=== PATIENT | female | born 1990 | race Two or more races ===

== ENCOUNTER 2025-02-06 20:52 | Observation (INO) | payer MEDICAID, SELFPAY ==
[2025-02-06] VITALS (38 sets, daily range): BP systolic 113–131; BP diastolic 66–78; PULSE 72–87; RESP 18; TEMP 36.9–37.1; O2SAT 92–100; BMI 31.2
--- NOTE | 2025-02-06 21:15 | XR_ITS ---
Examination: Complete OB ultrasound greater than 14 weeks Date and time of exam: February 06, 2025 2147 hours INDICATIONS: Vaginal bleeding today Findings: Viable intrauterine single fetus with single amniotic sac presentation breech Cardiac motion 162 BPM Placenta posterior low lying no reduction grade 2 Umbilical cord insertion 3 vessel C Amniotic fluid index adequate spine posterior Cervix 4.2 cm Vertebral view obscured by bowel gas Left ovary. Composite estimated gestational age based on BPD, head circumference, abdominal circumference, femur length is 21 day Estimated weight 754 g. Survey of intracranial anatomy, spinal anatomy, abdominal anatomy, four-chamber heart performed with no abnormalities identified. Impression: Viable intrauterine gestation in breech presentation No placental abruption.
--- NOTE | 2025-02-06 21:16 | XR_ITS ---
Examination: Transvaginal ultrasound of the pelvis, limited Technique: Transvaginal sonographic images pelvis performed using colbert scale imaging Exam date and time: February 06, 2025 2144 hours INDICATIONS: Vaginal bleeding today, unknown cervical length FINDINGS: Cervix 5.0 cm IMPRESSION: Cervix 5.0 cm.
[2025-02-06 22:04] LABS: Basophils # (Auto) 0.0 Thou/mm3 (0.0-0.2); Basophils % (Auto) 0 % (0-2.5); Eosinophils # (Auto) 0.2 Thou/mm3 (0.0-0.5); Eosinophils % (Auto) 2 % (0-10); Hematocrit 38.0 % (36.0-46.0); Hemoglobin 12.8 g/dL (12.0-16.0); Immature Granulocytes Auto 0.04 Thou/mm3 (0.00-0.00); Lymphocytes # (Auto) 1.9 Thou/mm3 (1.0-4.8); Lymphocytes % (Auto) 20 % (10-50); Mean Corpuscular HGB Conc 33.7 g/dl (31.0-37.0); Mean Corpuscular Hemoglobin 30.1 pg (25.0-35.0); Mean Corpuscular Volume 89 fL (80-100); Monocytes # (Auto) 0.7 Thou/mm3 (0.0-0.8); Monocytes % (Auto) 7 % (0-12); Neutrophils # (Auto) 6.8 Thou/mm3 (1.8-7.7); Neutrophils % (Auto) 71 % (37-80); Nucleated Red Blood Cell # 0.00 Thou/mm3 (0.00-0.00); Nucleated Red Blood Cell % 0 /100 WBC (0); Platelet Count 225 Thou/mm3 (140-440); RDW Standard Deviation 43.7 fL (36.4-46.3); Red Blood Count 4.25 Miln/mm3 (4.00-5.20); White Blood Count 9.6 Thou/mm3 (3.6-11.0)
[2025-02-06 22:04] LABS: Collection Type, Urine Voided
[2025-02-06 22:07] LABS: Bilirubin,Urine Negative (Negative); Blood,Urine 3+ (Negative); Clarity,Urine Clear (Clear/Hazy); Color,Urine Lt-Yellow (Lt Yel-Yel); Glucose, Urine 2+ (Negative); Ketones,Urine Negative (Negative); Leukocyte Esterase,Urine Positive (Negative); Nitrite,Urine Negative (Negative); PH,Urine 6.5 (5.0-7.0); Protein,Urine Negative (Neg - Trace); RBC,Urine 50 /hpf (0-3); Specific Gravity,Urine 1.013 (1.001-1.035); Squamous Epithelial Cell,Urine 6 /hpf (0-5); Urobilinogen,Urine Negative mg/dL (0.0-1.0); WBC,Urine 5 /hpf (0-5)
[2025-02-07] VITALS: BP 113/63; PULSE 75
[2025-02-07 00:01] VITALS: PULSE 84; O2SAT 97
== END 2025-02-07 00:15 | disposition home or self-care (01) ==
PROVIDERS: Admitting Provider Specialist; Visit Provider Specialist
DX: O46.92 Antepartum hemorrhage, unspecified, second trimester (principal); Z3A.25 25 weeks gestation of pregnancy; O32.1XX0 Maternal care for breech presentation, not applicable or unspecified
CPT/HCPCS: 36415; 59025; 59899; 76805; 76830; 81001; 85025; 86850; 86900; 86901; J2790

== ENCOUNTER 2025-05-05 06:45 | Observation (INO) | payer MEDICAID, SELFPAY ==
[2025-05-05 06:57] VITALS: BP 119/73; PULSE 71; RESP 17; RESP 98; TEMP 36.8; BMI 31.1
[2025-05-05 07:02] VITALS: BP 119/73; PULSE 71
== END 2025-05-05 09:15 | disposition home or self-care (01) ==
PROVIDERS: Admitting Provider Specialist; Visit Provider Specialist
DX: O26.893 Other specified pregnancy related conditions, third trimester (principal); Z3A.37 37 weeks gestation of pregnancy; M54.9 Dorsalgia, unspecified
CPT/HCPCS: 59025; 59899

== ENCOUNTER 2025-05-10 04:19 | Inpatient (IN) | payer MEDICAID, SELFPAY ==
[2025-05-10] VITALS (23 sets, daily range): BP systolic 102–132; BP diastolic 55–75; PULSE 60–96; RESP 16–98; TEMP 36.5–37; O2SAT 89–98; BMI 32.5
[2025-05-10] MEDS: Ampicillin Inj 2,000 MG in SODIUM CHLORIDE 0.9% (POP) 100 ML 200 MG IV (05:09)
[2025-05-10] MEDS: RINGERS LACTATED 1000 ML 1,000 ML 100 ML IV (05:09)
[2025-05-10 05:33] LABS: Basophils # (Auto) 0.1 Thou/mm3 (0.0-0.2); Basophils % (Auto) 1 % (0-2.5); Eosinophils # (Auto) 0.3 Thou/mm3 (0.0-0.5); Eosinophils % (Auto) 2 % (0-10); Hematocrit 42.2 % (36.0-46.0); Hemoglobin 14.4 g/dL (12.0-16.0); Immature Granulocytes Auto 0.04 Thou/mm3 (0.00-0.00); Lymphocytes # (Auto) 2.4 Thou/mm3 (1.0-4.8); Lymphocytes % (Auto) 23 % (10-50); Mean Corpuscular HGB Conc 34.1 g/dl (31.0-37.0); Mean Corpuscular Hemoglobin 30.4 pg (25.0-35.0); Mean Corpuscular Volume 89 fL (80-100); Monocytes # (Auto) 0.9 Thou/mm3 (0.0-0.8); Monocytes % (Auto) 8 % (0-12); Neutrophils # (Auto) 7.0 Thou/mm3 (1.8-7.7); Neutrophils % (Auto) 66 % (37-80); Nucleated Red Blood Cell # 0.00 Thou/mm3 (0.00-0.00); Nucleated Red Blood Cell % 0 /100 WBC (0); Platelet Count 212 Thou/mm3 (140-440); RDW Standard Deviation 42.8 fL (36.4-46.3); Red Blood Count 4.74 Miln/mm3 (4.00-5.20); White Blood Count 10.6 Thou/mm3 (3.6-11.0)
[2025-05-10 06:17] LABS: Syphilis Nonreactive (Nonreactive)
[2025-05-10] MEDS: OXYTOCIN in NS 20 units 20 UNIT/1,000 ML BAG 125 UNIT IV (06:29)
[2025-05-10] MEDS: LIDOCAINE HCL 1% 20 ML VIAL INFL (06:34)
--- NOTE | 2025-05-10 06:52 | PD.LDHP ---
Documentation for date of: 05/10/25 OB Labor/Induct. HPI History of Present Illness Comments: H and P dictated [id number] Labs Labs: Positive: Rubella Titre and Group Beta Strep, Negative: RPR, Hepatitis B, HIV, Chlamydia and Gonorrhea and Unknown: Herpes Type 1, Herpes Type 2 and Covid-19 Meds Home Medications and Allergies Home Medications ?Medication ?Instructions ?Recorded ?Confirmed ?Type vitamins-iron fumarate 27 1 tab PO QDAY 11/12/19 05/10/25 History mg iron-folic acid 0.8 mg tablet ( Vitamin) aspirin 81 mg tablet,delayed 81 mg PO DAILY 05/05/25 05/10/25 History release Allergies Allergy/AdvReac Type Severity Reaction Status Date / Time No Known Allergies Allergy Verified 05/10/25 04:58 OB Exam Physical Exam Vital signs: Temp Pulse Resp BP Pulse Ox 98.0 F 75 18 116/63 95 05/10/25 05:54 05/10/25 06:46 05/10/25 05:54 05/10/25 06:46 05/10/25 04:50 OB Results Labs 05/10/25 05:12 Labs: Short CBC 05/10/25 Range/Units 05:12 WBC 10.6 (3.6-11.0) Thou/mm3 Hgb 14.4 (12.0-16.0) g/dL Hct 42.2 (36.0-46.0) % Plt Count 212 (140-440) Thou/mm3
--- NOTE | 2025-05-10 06:53 | ESDS_ITS ---
DS: Providers Provider Date of admission: 05/10/25 04:56 Primary care physician: Physician No Primary/Family Admitting Provider: Pritesh Melgoza MD Attending Provider on Admission: Pritesh Melgoza MD Attending Provider on DC: Pritesh Melgoza MD Discharging Provider: Pritesh Melgoza MD DS: Diagnosis Problem List Completed Was Problem List Reviewed/Reconciled?: Yes Summary/Hosp Course Peripartum Data Delivery Method: Normal Vaginal Delivery Episiotomy Description: None Time Spent with Patient Time attestation: Total time spent providing and/or coordinating discharge services: Exam Vital Signs Temp Pulse Resp BP Pulse Ox 98.0 F 75 18 116/63 95 05/10/25 05:54 05/10/25 06:46 05/10/25 05:54 05/10/25 06:46 05/10/25 04:50 Discharge Plan Plan Patient Disposition: HOME (Self Care) Patient condition on transfer: Stable Prescriptions/Referrals Prescriptions/Med Rec: New ibuprofen 600 mg tablet 600 mg PO Q6H PRN (Reason: pain) Qty: 30 0RF Continued Vitamin 27 mg iron- 0.8 mg Tablet 1 tab PO QDAY Discontinued aspirin 81 mg tablet,delayed release (DR/EC) 81 mg PO DAILY Referrals: No Primary/Family,Physician [Primary Care Provider] Patient/Caregiver Discharge Instructions Discharge Activity: activity as tolerated Other Discharge Activity Instructions:: Discharge Home when follow up office 6 w eeks. Carmine stern con el Dr. Melgoza en 6 semanas Education Materials: After a Vaginal , Breast Care After Print Language: Yi Stand Alone Forms: Rolanda Award Info., Patient Portal Info Letter Discharge Order Discharge Orders: Discharge (Routine); Ordered 05/11/25 Ordered By: Pritesh Melgoza Planned Discharge Date 05/11/25
--- NOTE | 2025-05-10 06:55 | PD.LDDELS ---
Data ([facility]) Data Hx Section: No : 4 Term: 2 : 0 Livin Abortions: Spontaneous & Theraputic: 1 Delivery Data ([facility]ño) Labor Data Initiation of labor: Spontaneous Induction/Augmentation Agent: None ROM date: 05/10/25 ROM time: 03:30 Amniotic membrane rupture type: Spontaneous Amniotic fluid description: Clear and Blood Tinged Delivery Data EDC: 05/21/25 EDC calculated by:: LMP/early US confirmation Onset of labor date: 05/10/25 Onset of labor time: 03:30 Complete dilation date: 05/10/25 Complete dilation time: 06:15 [place] delivery date: 05/10/25 delivery time: 06:28 Gestational age (weeks): 38 Gestational age (days): 3 Placenta delivery date: 05/10/25 Placenta delivery time: 06:40 Stage 1 total time: Labor - Stage 1 Duration 2 hours and 45 minutes Delivered by: Dr Melgoza Delivery nurse: Andrade Mcintyre nurse: Lanie Borja Prn Occupational Therapist at delivery: No Support person(s) at delivery: SRAVAN Other staff at delivery: Annelise Rodriguez Delivery Method Delivery method: Normal Vaginal Delivery Presentation: Vertex position: OA Anesthesia Type Anesthesia Type: Local Placenta Placenta delivery description: Spontaneous Cord blood sent to lab: Yes cord blood collection: Cord Blood Type Episiotomy Episiotomy description: None Lacerations #1: Perineal: 2nd degree Perineal repair Sutures used for repair: 3.0 Chromic EBL Estimated blood loss (ml): 150 Umbilical Cord cord description: 3 Vessels Additional Procedures none Complications Complications: None [place] Data ([place]) [place] Data order: 1 's gender: Male Identification band number: [id number] 1 minute: 9 5 minutes: 9
--- NOTE | 2025-05-10 09:19 | ESHP_ITS ---
RE: AMIE MCKENZIE : 1990 DATE OF ADMISSION: 05/10/2025 HISTORY OF PRESENT ILLNESS: This is a 34-year-old 4, para 2-0-1-2, with due date of 05/21 with intrauterine at 38 weeks and 3 days, who presents to labor and delivery complaining of contractions and leaking fluid, and she rapidly progressed to fully dilated and had a vaginal delivery of a viable male infant over a second-degree perineal laceration without complications. Her care was complicated by a urinary tract infection due to group B Strep. The patient received ampicillin in labor. ALLERGIES: NO KNOWN DRUG ALLERGIES. MEDICATIONS: 1. multivitamin 1 p.o. daily. 2. Aspirin 81 mg 1 p.o. daily. PAST MEDICAL HISTORY: RH negative. Latent tuberculosis infection. Borderline chronic hypertension. SOCIAL HISTORY: She denies any alcohol, drug use, or smoking. Cuban speaking. FAMILY HISTORY: Uncle with hemophilia. Both children have autism. OBSTETRIC HISTORY: Two previous full-term normal vaginal deliveries and 1 previous spontaneous AB with D and C. PAST SURGICAL HISTORY: D and C in 2012. REVIEW OF SYSTEMS: She denies any chest pain, palpitations, cough, fever, shortness of breath, or lower extremity pain. She denies any flank pain. PHYSICAL EXAMINATION: VITAL SIGNS: Blood pressure 116/63, heart rate 75, respirations 18, temperature is 98.2. HEENT: Oropharynx and sclerae clear. LUNGS: Clear to auscultation bilaterally. HEART: Regular rate and rhythm. ABDOMEN: Fundus is firm at the umbilicus. PELVIC: Status post repair of second-degree perineal laceration. EXTREMITIES: Nontender. LABORATORY DATA: Hemoglobin is 14.4. ASSESSMENT: day #0, status post spontaneous vaginal delivery. PLAN: care, evaluate fetus for RH status and give RhoGAM to mom if necessary. Notify telephone appointment clerk of the group B Strep urinary tract infection earlier in . DT: 06:52:03 TT: 09:18:00 Ref: [id number] - TID: [id number]
[2025-05-10] MEDS: BENZO/LANO/ALOE (Dermoplast) 60 GM CAN 1 SPRAY TOP (09:21)
[2025-05-10 12:51] LABS: Basophils # (Auto) 0.1 Thou/mm3 (0.0-0.2); Basophils % (Auto) 0 % (0-2.5); Nucleated Red Blood Cell # 0.00 Thou/mm3 (0.00-0.00); Nucleated Red Blood Cell % 0 /100 WBC (0)
[2025-05-10 12:57] LABS: Eosinophils # (Auto) 0.0 Thou/mm3 (0.0-0.5); Eosinophils % (Auto) 0 % (0-10); Hematocrit 43.6 % (36.0-46.0); Hemoglobin 15.0 g/dL (12.0-16.0); Immature Granulocytes Auto 0.07 Thou/mm3 (0.00-0.00); Lymphocytes # (Auto) 2.3 Thou/mm3 (1.0-4.8); Lymphocytes % (Auto) 12 % (10-50); Mean Corpuscular HGB Conc 34.4 g/dl (31.0-37.0); Mean Corpuscular Hemoglobin 30.5 pg (25.0-35.0); Mean Corpuscular Volume 89 fL (80-100); Monocytes # (Auto) 1.1 Thou/mm3 (0.0-0.8); Monocytes % (Auto) 6 % (0-12); Neutrophils # (Auto) 15.4 Thou/mm3 (1.8-7.7); Neutrophils % (Auto) 81 % (37-80); Platelet Count 227 Thou/mm3 (140-440); RDW Standard Deviation 42.9 fL (36.4-46.3); Red Blood Count 4.92 Miln/mm3 (4.00-5.20); White Blood Count 18.9 Thou/mm3 (3.6-11.0)
[2025-05-10] MEDS: IBUPROFEN TAB 400 MG TABLET 800 MG PO (14:05)
[2025-05-11 00:35] VITALS: BP 107/69; PULSE 68; RESP 16; TEMP 36.6; O2SAT 97
[2025-05-11] MEDS: IBUPROFEN TAB 400 MG TABLET 800 MG PO (00:55)
[2025-05-11 04:40] VITALS: BP 112/72; PULSE 68; RESP 18; TEMP 36.6; O2SAT 97
--- NOTE | 2025-05-11 07:14 | ESPR_ITS ---
RE: AMIE MCKENZIE : 1990 DATE OF SERVICE: 05/11/2025 S: day #1. Patient denies any problem or complaint. She is voiding. She is ambulating. She is tolerating diet. She is passing flatus. She denies any excessive vaginal bleeding. She denies any dizziness or lightheadedness. She denies any chest pain, palpitations, shortness of breath, or lower extremity pain. O: VITAL SIGNS: Blood pressure is 107/69. Heart rate 68. Respirations 16. Temperature is 97.9. Pulse oximetry is 97% on room air. LUNGS: Clear to auscultation bilaterally. HEART: Regular rate and rhythm. ABDOMEN: Fundus is firm. EXTREMITIES: Nontender. LABORATORY DATA: Hemoglobin predelivery is 14.4, postdelivery is 15.0. ASSESSMENT: day number 1 status post spontaneous vaginal delivery. P: Discharge home when baby is cleared. Discharge instructions given. Follow up in the office in 6 weeks. DT: 04:54:34 TT: 07:13:00 Ref: [id number] - TID: [id number]
[2025-05-11 08:00] VITALS: BP 105/69; PULSE 71; RESP 17; TEMP 36.7; O2SAT 97
== END 2025-05-11 11:37 | disposition home or self-care (01) | DRG 560 ==
LOC: S4SX 06:43 → S4NX 09:40
PROVIDERS: Admitting Provider Specialist; Visit Provider Specialist
DX: O99.824 Streptococcus B carrier state complicating childbirth (principal); Z3A.38 38 weeks gestation of pregnancy; Z37.0 Single live birth; O70.1 Second degree perineal laceration during delivery; Z67.91 Unspecified blood type, Rh negative; Z86.15 Personal history of latent tuberculosis infection
CPT/HCPCS: 36415; 84112; 85025; 85461; 86780; 86850; 86900; 86901; J0290; J2590; J2790; J3490; J7120; A9270